=== PATIENT | female | born 1945 | race Caucasian/White ===

== ENCOUNTER 2016-06-16 14:40 | Outpatient (CLI) | payer MEDICARE | END 2016-06-16 14:41 | disposition home or self-care (01) | DX: E78.5 Hyperlipidemia, unspecified (principal) ==

== ENCOUNTER 2016-07-10 16:28 | Outpatient (CLI) | payer MEDICARE | END 2016-07-10 16:29 | disposition home or self-care (01) | DX: J18.9 Pneumonia, unspecified organism (principal) ==

== ENCOUNTER 2016-07-13 20:25 | Outpatient (CLI) | payer MEDICARE | END 2016-07-13 20:26 | disposition home or self-care (01) | DX: J18.9 Pneumonia, unspecified organism (principal); R06.02 Shortness of breath ==

== ENCOUNTER 2016-07-24 12:32 | Outpatient (CLI) | payer MEDICARE ==
[2016-07-24 19:11] LABS: BASOPHILS % (AUTO) 0.3 %; EOSINOPHILS % (AUTO) 0.1 %; HCT - HEMATOCRIT 33.3 % (37.0-47.0); LYMPHOCYTES # (AUTO) 1.4 10^3/uL (1.5-3.5); LYMPHOCYTES % (AUTO) 9.4 %; MEAN CORPUSCULAR HEMOGLOBIN 29.9 pg (27.0-31.0); MEAN CORPUSCULAR HGB CONC 33.2 g/dL (32.0-36.0); MEAN CORPUSCULAR VOLUME 90.1 fL (81.0-99.0); MEAN PLATELET VOLUME 7.2 fL (7.9-10.8); MONOCYTES # (AUTO) 0.5 10^3/uL (0.0-1.0); MONOCYTES % (AUTO) 3.5 %; NEUTROPHILS # (AUTO) 12.8 10^3/uL (1.5-6.6); NEUTROPHILS % (AUTO) 86.7 %; RED BLOOD COUNT 3.69 10^6/uL (4.20-5.40); RED CELL DISTRIBUTION WIDTH 14.4 % (12.0-15.0); UNCORRECTED WHITE BLOOD COUNT 14.7 x10^3/uL; WHITE BLOOD COUNT 14.7 x10^3/uL (4.8-10.8)
[2016-07-24 19:44] LABS: CALCIUM 9.5 mg/dL (8.5-10.3); CREATININE 0.8 mg/dL (0.4-1.0); POTASSIUM 4.2 mmol/L (3.5-5.0)
[2016-07-24 20:19] LABS: PLATELET ESTIMATE, MANUAL INCREASED (>450,000) (NORMAL); PLATELET MORPHOLOGY NORMAL APPEARANCE (NORMAL)
[2016-07-24 20:20] LABS: WBC MORPHOLOGY (MULTIPLE) NORMAL APPEARANCE (NORMAL)
== END 2016-07-24 12:33 | disposition home or self-care (01) ==
LOC: LAB.WCP 12:32
PROVIDERS: ATTEND Family Medicine
DX: R55 Syncope and collapse (principal)
CPT/HCPCS: 36415; 80048; 83880; 84484; 85025

== ENCOUNTER 2016-08-03 12:50 | Outpatient (CLI) | payer MEDICARE, OTHER | END 2016-08-03 12:51 | disposition home or self-care (01) | DX: M85.88 Other specified disorders of bone density and structure, other site (principal) ==

== ENCOUNTER 2016-08-03 12:54 | Outpatient (CLI) | payer OTHER | END 2016-08-03 12:55 | disposition home or self-care (01) | DX: R06.02 Shortness of breath (principal); R55 Syncope and collapse; Z86.79 Personal history of other diseases of the circulatory system; I51.7 Cardiomegaly ==

== ENCOUNTER 2016-09-04 13:46 | Outpatient (CLI) | payer OTHER ==
[2016-09-04] MEDS ORDERED: IOPAMIDOL-300 100 ML VIAL IVP ONE (14:55)
== END 2016-09-04 13:47 | disposition home or self-care (01) ==
DX: J18.9 Pneumonia, unspecified organism (principal); J90 Pleural effusion, not elsewhere classified; Z85.3 Personal history of malignant neoplasm of breast; C50.911 Malignant neoplasm of unspecified site of right female breast; Z90.11 Acquired absence of right breast and nipple; Z17.1 Estrogen receptor negative status [ER-]; R63.5 Abnormal weight gain; G62.9 Polyneuropathy, unspecified; R53.83 Other fatigue; G47.30 Sleep apnea, unspecified; J85.2 Abscess of lung without pneumonia
CPT/HCPCS: 36415; 71260; 80053; 83615; 85027; 99211; 99214; Q9967

== ENCOUNTER 2016-09-06 13:24 | Day surgery (SDC) | payer OTHER ==
--- NOTE | 2016-09-06 16:16 | XRAY Report ---
FRONTAL CHEST: 09/06/2016 CLINICAL INDICATION: PICC placement. FINDINGS: Frontal view of the chest is compared to previous CT of 09/04/2016. The cardiac silhouette is enlarged. Postoperative changes are stable. Left arm PICC terminates in t he distal superior vena cava, approximately 2 cm above the cavoatrial junction. Right basilar parenc hymal disease appears unchanged from CT, with trace right effusion. No pneumothorax. IMPRESSION: LEFT ARM PICC TERMINATING IN THE DISTAL SUPERIOR VENA CAVA. JOB #: [id number] EXT JOB #:[id number]
== END 2016-09-06 13:25 | disposition home or self-care (01) ==
LOC: SDS 13:24
PROVIDERS: ATTEND Registered Nurse
PROC: 02HV33Z Insertion of Infusion Device into Superior Vena Cava, Percutaneous Approach (ICD-10-PCS; principal; 2016-09-06 13:30)
DX: J85.2 Abscess of lung without pneumonia (principal)
CPT/HCPCS: 36569; C1751; 71010

== ENCOUNTER 2016-09-27 15:39 | Outpatient (CLI) | payer OTHER ==
[2016-09-27] MEDS ORDERED: IOPAMIDOL-300 100 ML VIAL IVP ONE (16:21)
== END 2016-09-27 15:40 | disposition home or self-care (01) ==
DX: J90 Pleural effusion, not elsewhere classified (principal)
CPT/HCPCS: 71260; Q9967

== ENCOUNTER 2017-05-09 10:40 | Outpatient (CLI) | payer MEDICARE | END 2017-05-09 10:41 | disposition home or self-care (01) | LOC: SC 10:40 | PROVIDERS: ATTEND Nurse Practitioner Family | DX: G47.33 Obstructive sleep apnea (adult) (pediatric) (principal); G47.00 Insomnia, unspecified | CPT/HCPCS: 99215; G0463; 99212 ==

== ENCOUNTER 2017-07-05 13:09 | Outpatient (CLI) | payer MEDICARE | END 2017-07-05 13:10 | disposition home or self-care (01) | LOC: SC 13:09 | PROVIDERS: ATTEND Nurse Practitioner Family | DX: G47.33 Obstructive sleep apnea (adult) (pediatric) (principal) | CPT/HCPCS: 99215; G0463; 99212 ==

== ENCOUNTER 2017-08-02 11:34 | Outpatient (CLI) | payer MEDICARE ==
--- NOTE | 2017-08-03 13:15 | Mammography Report ---
DIGITAL SCREENING LEFT MAMMOGRAM: 08/02/2017 CLINICAL INDICATION: A 71-year-old with personal history of right breast cancer, status post mastectomy and chemotherapy. TECHNIQUE: Left CC and MLO views were obtained. COMPARISON: 08/2015, 08/2014, 06/2013, 05/2013, 04/2012, 12/2010, 12/2009. FINDINGS: The left breast again demonstrates heterogeneously dense fibroglandular parenchyma. Coarse and punctate, typically benign calcifications are present, no suspicious masses, clustered microcalcifications, or regions of architectural distortion are identified. IMPRESSION: BENIGN FINDINGS. RECOMMENDATION: ROUTINE ANNUAL SCREENING UNLESS OTHERWISE CLINICALLY INDICATED. BIRADS CATEGORY 2-BENIGN FINDINGS. STANDARD QUALIFYING STATEMENTS: 1. This examination was reviewed with the aid of Computer-Aided Detection (CAD). 2. A negative or benign imaging report should not delay biopsy if clinically suspicious findings are present. Consider surgical consultation if warranted. More than 5% of cancers are not identified by imaging. 3. Dense breasts may obscure an underlying neoplasm. TD: 08/03/2017 13:14
== END 2017-08-02 11:35 | disposition home or self-care (01) ==
LOC: DI.S 11:34
PROVIDERS: ATTEND Internal Medicine Hematology & Oncology
DX: Z12.31 Encounter for screening mammogram for malignant neoplasm of breast (principal); Z85.3 Personal history of malignant neoplasm of breast; Z90.11 Acquired absence of right breast and nipple

== ENCOUNTER 2017-08-06 11:21 | Outpatient (CLI) | payer MEDICARE | END 2017-08-06 11:22 | disposition home or self-care (01) | LOC: SC 11:21 | PROVIDERS: ATTEND Nurse Practitioner Family | DX: G47.33 Obstructive sleep apnea (adult) (pediatric) (principal) | CPT/HCPCS: 99214; G0463; 99212 ==

== ENCOUNTER 2017-08-08 11:06 | Outpatient (CLI) | payer MEDICARE ==
[2017-08-08 17:48] LABS: BASOPHILS # (AUTO) 0.1 10^3/uL (0.0-0.1); BASOPHILS % (AUTO) 1.2 %; EOSINOPHILS # (AUTO) 0.2 10^3/uL (0.0-0.7); EOSINOPHILS % (AUTO) 4.1 %; HGB - HEMOGLOBIN 12.1 g/dL (12.0-16.0); LYMPHOCYTES # (AUTO) 1.4 10^3/uL (1.5-3.5); LYMPHOCYTES % (AUTO) 33.5 %; MEAN CORPUSCULAR HGB CONC 32.8 g/dL (32.0-36.0); MEAN CORPUSCULAR VOLUME 94.6 fL (81.0-99.0); MEAN PLATELET VOLUME 7.9 fL (7.9-10.8); MONOCYTES # (AUTO) 0.3 10^3/uL (0.0-1.0); MONOCYTES % (AUTO) 7.9 %; NEUTROPHILS # (AUTO) 2.3 10^3/uL (1.5-6.6); NEUTROPHILS % (AUTO) 53.3 %; PLT - PLATELET COUNT 216 10^3/uL (130-450); RED BLOOD COUNT 3.91 10^6/uL (4.20-5.40); RED CELL DISTRIBUTION WIDTH 13.4 % (12.0-15.0); WHITE BLOOD COUNT 4.2 x10^3/uL (4.8-10.8)
[2017-08-08 18:15] LABS: ALBUMIN 3.9 g/dL (3.2-5.5); ALBUMIN/GLOBULIN RATIO 1.3 (1.0-2.2); ALKALINE PHOSPHATASE 43 IU/L (42-121); ALT ALANINE AMINOTRANSFERASE 14 IU/L (10-60); AST ASPARTATE AMINOTRANSFERASE 22 IU/L (10-42); BUN - BLOOD UREA NITROGEN 12 mg/dL (6-20); CARBON DIOXIDE - CO2 28 mmol/L (21-32); CHLORIDE 96 mmol/L (101-111); CHOL/HDL RATIO 3.9 (<4.4); CHOLESTEROL 257 mg/dL; CREATININE 0.7 mg/dL (0.4-1.0); GFR - MDRD 82 (>89); GLUCOSE 99 mg/dL (70-100); HDL CHOLESTEROL 66 mg/dL; LDL CHOLESTEROL,CALCULATED 166 mg/dL; LDL/HDL RATIO 2.5 (<4.4); SODIUM 134 mmol/L (135-145); VLDL CHOLESTEROL 25 mg/dL
== END 2017-08-08 11:07 | disposition home or self-care (01) ==
LOC: LAB.F 11:06
PROVIDERS: ATTEND Family Medicine
DX: I10 Essential (primary) hypertension (principal)
CPT/HCPCS: 36415; 80053; 80061; 83721; 85025

== ENCOUNTER 2017-10-08 13:39 | Outpatient (CLI) | payer MEDICARE | END 2017-10-08 13:40 | disposition home or self-care (01) | LOC: SC 13:39 | PROVIDERS: ATTEND Nurse Practitioner Family | DX: G47.33 Obstructive sleep apnea (adult) (pediatric) (principal) | CPT/HCPCS: 99214; G0463; 99212 ==

== ENCOUNTER 2018-01-18 12:33 | Outpatient (CLI) | payer MEDICARE | END 2018-01-18 12:34 | disposition home or self-care (01) | LOC: LAB.F 12:33 | PROVIDERS: ATTEND Family Medicine | DX: E78.5 Hyperlipidemia, unspecified (principal); I10 Essential (primary) hypertension; Z79.899 Other long term (current) drug therapy; R73.01 Impaired fasting glucose ==

== ENCOUNTER 2018-01-21 11:12 | Outpatient (CLI) | payer MEDICARE ==
[2018-01-21 18:04] LABS: BASOPHILS % (AUTO) 1.1 %; EOSINOPHILS # (AUTO) 0.1 10^3/uL (0.0-0.7); HGB - HEMOGLOBIN 13.4 g/dL (12.0-16.0); LYMPHOCYTES # (AUTO) 1.4 10^3/uL (1.5-3.5); LYMPHOCYTES % (AUTO) 31.7 %; MEAN CORPUSCULAR HEMOGLOBIN 33.1 pg (27.0-31.0); MEAN CORPUSCULAR HGB CONC 34.6 g/dL (32.0-36.0); MEAN CORPUSCULAR VOLUME 95.6 fL (81.0-99.0); MEAN PLATELET VOLUME 7.8 fL (7.9-10.8); MONOCYTES # (AUTO) 0.3 10^3/uL (0.0-1.0); MONOCYTES % (AUTO) 6.9 %; NEUTROPHILS # (AUTO) 2.6 10^3/uL (1.5-6.6); NEUTROPHILS % (AUTO) 57.3 %; PLT - PLATELET COUNT 220 10^3/uL (130-450); RED BLOOD COUNT 4.06 10^6/uL (4.20-5.40); RED CELL DISTRIBUTION WIDTH 13.6 % (12.0-15.0); WHITE BLOOD COUNT 4.5 x10^3/uL (4.8-10.8)
[2018-01-21 18:46] LABS: ALKALINE PHOSPHATASE 43 IU/L (42-121); ALT ALANINE AMINOTRANSFERASE 19 IU/L (10-60); AST ASPARTATE AMINOTRANSFERASE 23 IU/L (10-42); BILIRUBIN,TOTAL 0.8 mg/dL (0.2-1.0); BUN - BLOOD UREA NITROGEN 11 mg/dL (6-20); CALCIUM 9.3 mg/dL (8.5-10.3); CARBON DIOXIDE - CO2 31 mmol/L (21-32); CHLORIDE 98 mmol/L (101-111); CREATININE 0.6 mg/dL (0.4-1.0); GFR - MDRD 98 (>89); GLUCOSE 98 mg/dL (70-100); SODIUM 136 mmol/L (135-145)
[2018-01-21 18:47] LABS: ALBUMIN/GLOBULIN RATIO 1.3 (1.0-2.2); CHOL/HDL RATIO 3.9 (<4.4); CHOLESTEROL 283 mg/dL; HDL CHOLESTEROL 73 mg/dL; LDL CHOLESTEROL,CALCULATED 186 mg/dL; LDL/HDL RATIO 2.5 (<4.4); VLDL CHOLESTEROL 24 mg/dL
[2018-01-21 20:35] LABS: HEMOGLOBIN A1C 0.54 g/dL; HEMOGLOBIN A1C % 5.7 % (4.6-6.2)
== END 2018-01-21 11:13 | disposition home or self-care (01) ==
LOC: LAB.F 11:12
PROVIDERS: ATTEND Family Medicine
DX: E78.5 Hyperlipidemia, unspecified (principal); I10 Essential (primary) hypertension; Z79.899 Other long term (current) drug therapy; R73.01 Impaired fasting glucose
CPT/HCPCS: 36415; 80053; 80061; 83036; 83721; 84443; 85025

== ENCOUNTER 2018-03-07 14:30 | Outpatient (CLI) | payer MEDICARE | END 2018-03-07 14:31 | disposition home or self-care (01) | LOC: CAM 14:30 | PROVIDERS: ATTEND Internal Medicine Hematology & Oncology | DX: G62.0 Drug-induced polyneuropathy (principal) | CPT/HCPCS: 97810; 97811 ==

== ENCOUNTER 2018-03-21 14:15 | Outpatient (CLI) | payer MEDICARE | END 2018-03-21 14:16 | disposition home or self-care (01) | LOC: CAM 14:15 | PROVIDERS: ATTEND Internal Medicine Hematology & Oncology | DX: G62.9 Polyneuropathy, unspecified (principal) | CPT/HCPCS: 97810; 97811 ==

== ENCOUNTER 2018-04-04 14:09 | Outpatient (CLI) | payer MEDICARE | END 2018-04-04 14:10 | disposition home or self-care (01) | LOC: CAM 14:09 | PROVIDERS: ATTEND Family Medicine | DX: G62.9 Polyneuropathy, unspecified (principal) | CPT/HCPCS: 97813; 97814 ==

== ENCOUNTER 2018-04-18 14:02 | Outpatient (CLI) | payer MEDICARE | END 2018-04-18 14:03 | disposition home or self-care (01) | LOC: CAM 14:02 | PROVIDERS: ATTEND Internal Medicine Hematology & Oncology | DX: G62.9 Polyneuropathy, unspecified (principal) | CPT/HCPCS: 97813; 97814 ==

== ENCOUNTER 2018-04-25 14:07 | Outpatient (CLI) | payer MEDICARE | END 2018-04-25 14:08 | disposition home or self-care (01) | LOC: CAM 14:07 | PROVIDERS: ATTEND Internal Medicine Hematology & Oncology | DX: G62.9 Polyneuropathy, unspecified (principal) | CPT/HCPCS: 97813; 97814 ==

== ENCOUNTER 2018-05-09 13:11 | Outpatient (CLI) | payer MEDICARE | END 2018-05-09 13:12 | disposition home or self-care (01) | LOC: CAM 13:11 | PROVIDERS: ATTEND Internal Medicine Hematology & Oncology | DX: G62.9 Polyneuropathy, unspecified (principal) | CPT/HCPCS: 97813; 97814 ==

== ENCOUNTER 2018-05-23 13:06 | Outpatient (CLI) | payer MEDICARE | END 2018-05-23 13:07 | disposition home or self-care (01) | LOC: CAM 13:06 | PROVIDERS: ATTEND Internal Medicine Hematology & Oncology | DX: G62.9 Polyneuropathy, unspecified (principal) | CPT/HCPCS: 97810; 97811 ==

== ENCOUNTER 2018-06-20 13:09 | Outpatient (CLI) | payer MEDICARE | END 2018-06-20 13:10 | disposition home or self-care (01) | LOC: CAM 13:09 | PROVIDERS: ATTEND Internal Medicine Hematology & Oncology | DX: G62.2 Polyneuropathy due to other toxic agents (principal); T45.1X5A Adverse effect of antineoplastic and immunosuppressive drugs, initial encounter | CPT/HCPCS: 97810; 97811 ==

== ENCOUNTER 2018-08-01 14:05 | Outpatient (CLI) | payer MEDICARE | END 2018-08-01 14:06 | disposition home or self-care (01) | LOC: CAM 14:05 | PROVIDERS: ATTEND Family Medicine | DX: G61.9 Inflammatory polyneuropathy, unspecified (principal) | CPT/HCPCS: 97810; 97811 ==

== ENCOUNTER 2018-08-15 11:19 | Outpatient (CLI) | payer MEDICARE ==
[2018-08-15 18:18] LABS: CHOL/HDL RATIO 3.9 (<4.4); CHOLESTEROL 256 mg/dL; HDL CHOLESTEROL 66 mg/dL; LDL CHOLESTEROL,CALCULATED 169 mg/dL; LDL/HDL RATIO 2.6 (<4.4); VLDL CHOLESTEROL 21 mg/dL
== END 2018-08-15 11:20 | disposition home or self-care (01) ==
LOC: LAB.F 11:19
PROVIDERS: ATTEND Family Medicine
DX: E78.5 Hyperlipidemia, unspecified (principal)
CPT/HCPCS: 36415; 80061; 83721

== ENCOUNTER 2018-08-19 14:27 | Outpatient (CLI) | payer MEDICARE ==
--- NOTE | 2018-08-20 09:55 | Mammography Report ---
Reason: SCREENING MAMMO,STAGE II RIGHT BREAST CA Procedure Date: 08/19/2018 Accession Number: [id number] / [id number] Procedure: MGN - Screening Mammo Dig LT CPT Code: FULL RESULT: EXAM: Screening Mammo Dig LT DATE: 08/19/2018 2:43 PM CLINICAL HISTORY: Personal history of treated right breast cancer status post mastectomy and chemotherapy. No reported family history of breast cancer. Routine screening left breast. TECHNIQUE: Unilateral left CC and MLO views were obtained. COMPARISON: 08/02/2017 through 06/06/2013 FINDINGS: The breast demonstrates heterogeneously dense fibroglandular parenchyma. Left breast: There are no suspicious masses, calcifications or areas of distortion. IMPRESSION: Negative examination RECOMMENDATION: Routine annual screening unless otherwise clinically indicated. BI-RADS CATEGORY 1: Negative STANDARD QUALIFYING STATEMENTS: 1. This examination was reviewed with the aid of Computer-Aided Detection (CAD). 2. A negative or benign imaging report should not preclude biopsy if clinically suspicious findings are present. 3. Dense breasts may obscure an underlying neoplasm. 4. This examination was reviewed without the aid of 3D breast imaging (tomosynthesis).
== END 2018-08-19 14:28 | disposition home or self-care (01) ==
LOC: DI.N 14:27
PROVIDERS: ATTEND Internal Medicine Hematology & Oncology
DX: Z12.31 Encounter for screening mammogram for malignant neoplasm of breast (principal); Z85.3 Personal history of malignant neoplasm of breast; Z90.11 Acquired absence of right breast and nipple

== ENCOUNTER 2018-09-16 14:24 | Outpatient (CLI) | payer MEDICARE ==
--- NOTE | 2018-09-17 11:11 | Ultrasound Report ---
Reason: CLAUDICATION BILATERAL Procedure Date: 09/16/2018 Accession Number: [id number] / [id number] Procedure: US - Duplex Lwr Ext Arterial Bilat CPT Code: FULL RESULT: EXAM: Bilateral Lower Extremity Arterial Doppler Ultrasound EXAM DATE: 09/16/2018 03:05 PM. CLINICAL HISTORY: Claudication bilateral. COMPARISON: None. TECHNIQUE: Real-time sonographic vascular imaging was performed by the coding coordinator, utilizing color-flow, Doppler flow, and spectral analysis. Multiple inside sales representative static images were saved for review. FINDINGS: The bilateral lower extremity arterial systems are sampled with grayscale, color and spectral Doppler. Grayscale demonstrates normal-appearing vasculature and color Doppler demonstrates patency of all sampled bilateral lower extremity arteries as listed below. Spectral Doppler demonstrates preserved brisk systolic upstrokes and expected normal arterial waveforms throughout both lower extremities. Right Lower Extremity: ABLE BODIED WATCHMAN: PSV 86.8 cm/sec. PSFA: PSV 81.2 cm/sec. MSFA: PSV 67.8 cm/sec. DSFA: PSV 72.8 cm/sec. PFA: PSV 77.3 cm/sec. POP: PSV 66.1 cm/sec. NICOLAS: PSV 52.7 cm/sec. SUPERMARKET MANAGER: PSV 81.2 cm/sec. CHAR: PSV 71.1 cm/sec. DPA: PSV 59.7 cm/sec. Left Lower Extremity: ABLE BODIED WATCHMAN: PSV 108.5 cm/sec. PSFA: PSV 75.2 cm/sec. MSFA: PSV 78.4 cm/sec. DSFA: PSV 75.6 cm/sec. PFA: PSV 47.6 cm/sec. POP: PSV 74.7 cm/sec. NICOLAS: PSV 66.8 cm/sec. SUPERMARKET MANAGER: PSV 77.5 cm/sec. CHAR: PSV 48.1 cm/sec. DPA: PSV 67.6 cm/sec. IMPRESSION: Normal arterial study. If physical examination and presentation is typical of vascular disease, consider duplex interrogation of the venous system for insufficiency. RADIA
== END 2018-09-16 14:25 | disposition home or self-care (01) ==
LOC: DI 14:24
PROVIDERS: ATTEND Family Medicine
DX: I73.9 Peripheral vascular disease, unspecified (principal)
CPT/HCPCS: 93925

== ENCOUNTER 2018-09-25 12:36 | Outpatient (CLI) | payer MEDICARE ==
--- NOTE | 2018-09-26 09:48 | XRAY Report ---
Reason: HIP PAIN,RIGHT Procedure Date: 09/25/2018 Accession Number: [id number] / [id number] Procedure: XR - Hip w/Pelvis 2-3V RT CPT Code: FULL RESULT: EXAM: RIGHT HIP RADIOGRAPHY EXAM DATE: 09/25/2018 01:02 PM. CLINICAL HISTORY: HIP Pain, right. COMPARISON: HIP 2 VIEW RT 02/06/2014 11:57 AM. TECHNIQUE: 2 views. FINDINGS: Bones: Slight interval progression in now moderate right hip joint osteoarthritis compared to 02/06/2014. No acute abnormality. No evidence of fracture. No obvious AVN. Soft Tissues: Normal. No soft tissue swelling or calcifications. IMPRESSION: 1. No acute abnormality. 2. Moderate right hip joint osteoarthritis. RADIA
== END 2018-09-25 12:37 | disposition home or self-care (01) ==
LOC: DI 12:36
PROVIDERS: ATTEND Family Medicine
DX: M16.11 Unilateral primary osteoarthritis, right hip (principal)

== ENCOUNTER 2018-10-17 10:50 | Outpatient (CLI) | payer MEDICARE ==
[2018-10-17 17:44] LABS: HB2 TOTAL 11.7 g/dL; HEMOGLOBIN A1C 0.42 g/dL; HEMOGLOBIN A1C % 5.4 % (4.6-6.2)
[2018-10-17 17:45] LABS: ALBUMIN 3.6 g/dL (3.2-5.5); ALBUMIN/GLOBULIN RATIO 1.1 (1.0-2.2); ALKALINE PHOSPHATASE 42 IU/L (42-121); ALT ALANINE AMINOTRANSFERASE 26 IU/L (10-60); AST ASPARTATE AMINOTRANSFERASE 28 IU/L (10-42); BILIRUBIN,TOTAL 0.6 mg/dL (0.2-1.0); BUN - BLOOD UREA NITROGEN 12 mg/dL (6-20); CALCIUM 9.3 mg/dL (8.5-10.3); CARBON DIOXIDE - CO2 31 mmol/L (21-32); CHLORIDE 95 mmol/L (101-111); CHOL/HDL RATIO 4.3 (<4.4); CHOLESTEROL 250 mg/dL; CREATININE 0.7 mg/dL (0.4-1.0); GFR - MDRD 82 (>89); GLUCOSE 106 mg/dL (70-100); HDL CHOLESTEROL 58 mg/dL; LDL CHOLESTEROL,CALCULATED 163 mg/dL; LDL/HDL RATIO 2.8 (<4.4); SODIUM 137 mmol/L (135-145); VLDL CHOLESTEROL 29 mg/dL
[2018-10-17 17:56] LABS: THYROID STIMULATING HORMONE 1.65 uIU/mL (0.34-5.60)
[2018-10-17 19:03] LABS: BASOPHILS # (AUTO) 0.1 10^3/uL (0.0-0.1); BASOPHILS % (AUTO) 1.3 %; EOSINOPHILS # (AUTO) 0.2 10^3/uL (0.0-0.7); EOSINOPHILS % (AUTO) 5.3 %; HGB - HEMOGLOBIN 11.3 g/dL (12.0-16.0); LYMPHOCYTES # (AUTO) 1.3 10^3/uL (1.5-3.5); LYMPHOCYTES % (AUTO) 31.3 %; MEAN CORPUSCULAR HEMOGLOBIN 31.7 pg (27.0-31.0); MEAN CORPUSCULAR HGB CONC 33.4 g/dL (32.0-36.0); MEAN PLATELET VOLUME 8.3 fL (7.9-10.8); MONOCYTES # (AUTO) 0.3 10^3/uL (0.0-1.0); MONOCYTES % (AUTO) 7.9 %; NEUTROPHILS # (AUTO) 2.3 10^3/uL (1.5-6.6); NEUTROPHILS % (AUTO) 54.2 %; PLT - PLATELET COUNT 219 10^3/uL (130-450); RED BLOOD COUNT 3.57 10^6/uL (4.20-5.40); WHITE BLOOD COUNT 4.3 x10^3/uL (4.8-10.8)
== END 2018-10-17 10:51 | disposition home or self-care (01) ==
LOC: LAB.F 10:50
PROVIDERS: ATTEND Family Medicine
DX: I10 Essential (primary) hypertension (principal); E78.5 Hyperlipidemia, unspecified; R73.01 Impaired fasting glucose
CPT/HCPCS: 36415; 80053; 80061; 83036; 83721; 84439; 84443; 85025

== ENCOUNTER 2018-12-03 13:53 | Outpatient (CLI) | payer MEDICARE | END 2018-12-03 13:54 | disposition home or self-care (01) | LOC: LAB.F 13:53 | PROVIDERS: ATTEND Family Medicine | DX: Z01.84 Encounter for antibody response examination (principal) | CPT/HCPCS: 36415; 86762; 86765 ==

== ENCOUNTER 2019-01-23 11:24 | Outpatient (CLI) | payer MEDICARE ==
[2019-01-23 19:18] LABS: MEAN CORPUSCULAR HGB CONC 32.8 g/dL (32.0-36.0); MEAN CORPUSCULAR VOLUME 97.4 fL (81.0-99.0); RED BLOOD COUNT 3.44 10^6/uL (4.20-5.40); RED CELL DISTRIBUTION WIDTH 13.7 % (12.0-15.0); WHITE BLOOD COUNT 4.6 x10^3/uL (4.8-10.8)
[2019-01-23 19:40] LABS: BUN - BLOOD UREA NITROGEN 16 mg/dL (6-20); CALCIUM 9.7 mg/dL (8.5-10.3); CARBON DIOXIDE - CO2 28 mmol/L (21-32); CHLORIDE 96 mmol/L (101-111); CHOL/HDL RATIO 3.5 (<4.4); CHOLESTEROL 235 mg/dL; CREATININE 0.8 mg/dL (0.4-1.0); GFR - MDRD 70 (>89); GLUCOSE 98 mg/dL (70-100); HDL CHOLESTEROL 68 mg/dL; LDL CHOLESTEROL,CALCULATED 143 mg/dL; LDL/HDL RATIO 2.1 (<4.4); SODIUM 135 mmol/L (135-145); VLDL CHOLESTEROL 24 mg/dL
[2019-01-23 19:53] LABS: FERRITIN 49.4 ng/mL (11.0-306.8)
== END 2019-01-23 11:25 | disposition home or self-care (01) ==
LOC: LAB.WCP 11:24
PROVIDERS: ATTEND Family Medicine
DX: E78.5 Hyperlipidemia, unspecified (principal); R06.02 Shortness of breath; D64.9 Anemia, unspecified
CPT/HCPCS: 36415; 80048; 80061; 82607; 82728; 83721; 83880; 85027

== ENCOUNTER 2019-01-23 11:41 | Outpatient (CLI) | payer MEDICARE ==
--- NOTE | 2019-01-23 20:23 | XRAY Report ---
Reason: SHORTNESS OF BREATH Procedure Date: 01/23/2019 Accession Number: [id number] / [id number] Procedure: WCP - Chest 2 View X-Ray CPT Code: 67418 FULL RESULT: EXAM: CHEST RADIOGRAPHY EXAM DATE: 01/23/2019 11:41 AM. CLINICAL HISTORY: SHORTNESS OF BREATH. COMPARISON: CHEST FOR LINE PLACEMENT 09/06/2016 3:05 PM. TECHNIQUE: 2 views. FINDINGS: Lungs/Pleura: Resolution of the prior mild right mid and lower lung opacities. Left lateral mid to lower lung scar or atelectasis is stable. Increased very mild left basilar atelectasis or infiltrate. No dense consolidation. No lea pleural effusion. No pneumothorax. Mediastinum: Stable cardiomegaly. Median sternotomy changes redemonstrated. Other: Left PICC catheter no longer demonstrated. Right axillary region surgical clips redemonstrated. IMPRESSION: 1. Resolution of previous mild right pulmonary opacities. 2. Increased very mild left basilar atelectasis or infiltrate. 3. Stable cardiac enlargement. RADIA
== END 2019-01-23 23:59 | disposition home or self-care (01) ==
LOC: DI.WCP 11:41 → EDSTATUS 13:11 → DI.WCP 23:59
PROVIDERS: ATTEND Family Medicine
DX: R91.8 Other nonspecific abnormal finding of lung field (principal); I51.7 Cardiomegaly
CPT/HCPCS: 71046

== ENCOUNTER 2019-01-29 10:46 | Outpatient (CLI) | payer MEDICARE ==
[2019-01-29] MEDS ORDERED: REGADENOSON 0.4 MG/5 ML SYRINGE IVP ONE ×2 (11:21→14:22)
--- NOTE | 2019-01-29 17:37 | CARDIAC PROCEDURE NOTE ---
DATE OF SERVICE: 01/29/2019 Physician: Juana Candelaria MD, [facility] INDICATION: Shortness of breath. CARDIAC RISK FACTORS: Postmenopausal status, hypertension, elevated cholesterol, family history of heart disease (in a half brother). Patient has known congenital heart disease with a prolapsed mitral valve and "septal defect" (unknown what type of defect). DESCRIPTION OF PROCEDURE: After signing informed consent, patient underwent a Lexiscan pharmaceutical stress test with nuclear myocardial perfusion imaging. RESTING HEART RATE: 62. PEAK HEART RATE: 99. RESTING BLOOD PRESSURE: 164/99 (patient was told to stop her blood pressure medications for 24 hours prior, which she did). PEAK BLOOD PRESSURE: 172/81. Patient underwent Lexiscan infusion per protocol. She developed brief chest "tightness", which she rated 3 - 4/10 and mild shortness of breath. The symptoms subsided after 3 minutes, spontaneously. Oxygen saturation was 99% on room air during these symptoms. RESTING EKG: Ectopic atrial rhythm with abnormal P-wave morphology, low voltage in the limb leads, diffuse T-wave flattening in the limb leads, inverted T waves in V3 through V6. EKG AT PEAK: No new ST segment or T-wave changes. SUMMARY 1. Abnormal resting EKG. 2. No new changes by EKG criteria to suggest ischemia. 3. Nuclear images reported separately. cc: Naila Bahena DO TD: 01/29/2019 17:19 MTDD
--- NOTE | 2019-01-29 17:43 | Nuclear Medicine Report ---
Reason: SHORTNESS OF BREATH Procedure Date: 01/29/2019 Accession Number: [id number] / [id number] Procedure: NM - Myocardial Perfusion STR/RST CPT Code: FULL RESULT: EXAM: SINGLE-ISOTOPE PHARMACOLOGICAL STRESS TEST WITH REGADENOSON. SINGLE-ISOTOPE AND TWO-DAY REST/STRESS MYOCARDIAL PERFUSION SCANS WITH TOMOGRAPHIC IMAGING, QUANTITATIVE ANALYSIS, WALL MOTION ANALYSIS AND CALCULATION OF EJECTION FRACTION. EXAM DATE: 01/29/2019 03:29 PM. CLINICAL HISTORY: SHORTNESS OF BREATH. COMPARISON: CHEST 2 VIEW 01/23/2019 11:28 AM. TECHNIQUE: A pharmacological stress was performed with the infusion of 0.4 mg regadenoson per protocol. According to protocol, 10.9 mCi of Tc-99m sestamibi was injected for stress myocardial perfusion scan. Motion correction was applied when appropriate. The following day after the intravenous administration of 40.6 mCi of Tc-99m sestamibi, a rest myocardial perfusion scan was done with tomography. Motion correction was applied when appropriate. Gated tomographic images were obtained for wall motion analysis and computation of left ventricular ejection fraction. FINDINGS: Perfusion images: Left ventricular chamber size appears normal at rest and unchanged at stress. Moderate size mild to moderate severity fixed apical half anterior/anteroseptal perfusion deficit; breast attenuation artifact may contribute to this appearance. No convincing reversible perfusion deficits. SSS 9, SRS 5, SDS 4. Gated images: No convincing focal wall motion abnormality. Calculated left ventricular EDV 93 mL, ESV 39 mL. The left ventricular ejection fraction is estimated at 58% (normal > 50%). IMPRESSION: 1. No convincing reversible perfusion deficits to indicate stress-induced ischemia. 2. Moderate size mild to moderate severity fixed apical half anterior/anteroseptal perfusion deficit; breast attenuation artifact may contribute to this appearance. 3. Left ventricular ejection fraction of 58% (normal > 50%). Please correlate findings with stress ECG tracings and procedure notes. RADIA
== END 2019-01-29 10:47 | disposition home or self-care (01) ==
LOC: DI 10:46
PROVIDERS: ATTEND Family Medicine
DX: R06.02 Shortness of breath (principal); I10 Essential (primary) hypertension; E78.00 Pure hypercholesterolemia, unspecified; Z82.49 Family history of ischemic heart disease and other diseases of the circulatory system; R94.31 Abnormal electrocardiogram [ECG] [EKG]
CPT/HCPCS: 78452; 93017; A9500; J2785

== ENCOUNTER 2019-02-06 10:28 | Outpatient (CLI) | payer MEDICARE | END 2019-02-06 10:29 | disposition home or self-care (01) | LOC: DI 10:28 | PROVIDERS: ATTEND Family Medicine | DX: R06.02 Shortness of breath (principal); I27.20 Pulmonary hypertension, unspecified; I11.9 Hypertensive heart disease without heart failure; I34.0 Nonrheumatic mitral (valve) insufficiency | CPT/HCPCS: 93306 ==

== ENCOUNTER 2019-02-17 14:18 | Outpatient (CLI) | payer MEDICARE ==
--- NOTE | 2019-02-18 14:17 | XRAY Report ---
Reason: SHORTNESS OF BREATH Procedure Date: 02/17/2019 Accession Number: [id number] / [id number] Procedure: XRS - Chest 2 View X-Ray CPT Code: 13266 FULL RESULT: EXAM: CHEST RADIOGRAPHY EXAM DATE: 02/17/2019 02:52 PM. CLINICAL HISTORY: SHORTNESS OF BREATH. COMPARISON: CHEST 2 VIEW 01/23/2019 11:28 AM. TECHNIQUE: 2 views. FINDINGS: Lungs/Pleura: No focal opacities evident. No pleural effusion. No pneumothorax. Normal volumes. Linear peripheral scarring in the left midlung zone is unchanged. Mediastinum: Heart and mediastinal contours are unremarkable. Other: Status post sternotomy. Surgical clips in the right axilla with probable mastectomy. IMPRESSION: Postsurgical changes, otherwise no acute disease. RADIA
== END 2019-02-17 14:19 | disposition home or self-care (01) ==
LOC: DI.S 14:18
PROVIDERS: ATTEND Family Medicine
DX: R06.02 Shortness of breath (principal)
CPT/HCPCS: 71046

== ENCOUNTER 2019-02-28 11:48 | Outpatient (CLI) | payer MEDICARE ==
[2019-02-28 17:46] LABS: CALCIUM 10.1 mg/dL (8.5-10.3); CREATININE 0.7 mg/dL (0.4-1.0)
== END 2019-02-28 11:49 | disposition home or self-care (01) ==
LOC: LAB.S 11:48
PROVIDERS: ATTEND Internal Medicine Cardiovascular Disease
DX: R06.02 Shortness of breath (principal)
CPT/HCPCS: 36415; 80048

== ENCOUNTER 2019-04-07 13:51 | Outpatient (CLI) | payer MEDICARE ==
[2019-04-07 20:11] LABS: CALCIUM 9.9 mg/dL (8.5-10.3); CREATININE 0.8 mg/dL (0.4-1.0)
== END 2019-04-07 13:52 | disposition home or self-care (01) ==
LOC: LAB.S 13:51
PROVIDERS: ATTEND Internal Medicine Cardiovascular Disease
DX: I10 Essential (primary) hypertension (principal)
CPT/HCPCS: 36415; 80048

== ENCOUNTER 2019-04-18 10:09 | Day surgery (SDC) | payer MEDICARE ==
[2019-04-18] MEDS ORDERED: fentaNYL 250 MCG/5 ML VIAL IVP ONE (10:10)
[2019-04-18] MEDS ORDERED: MIDAZOLAM 2 MG/2 ML VIAL IVP ONE (10:10)
[2019-04-18] MEDS ORDERED: LACTATED RINGERS 1,000 ML IV ONE (10:24)
[2019-04-18 15:23] VITALS: BP 154/55
== END 2019-04-18 10:10 | disposition home or self-care (01) ==
LOC: SDS 10:09
PROVIDERS: ATTEND Surgery
PROC: 0DJD8ZZ Inspection of Lower Intestinal Tract, Via Natural or Artificial Opening Endoscopic (ICD-10-PCS; principal; 2019-04-18 11:30)
DX: Z12.11 Encounter for screening for malignant neoplasm of colon (principal); Z86.010 Personal history of colon polyps; I11.0 Hypertensive heart disease with heart failure; I50.9 Heart failure, unspecified; E78.5 Hyperlipidemia, unspecified; D64.9 Anemia, unspecified; G47.30 Sleep apnea, unspecified; I34.0 Nonrheumatic mitral (valve) insufficiency; Z85.3 Personal history of malignant neoplasm of breast; Z87.19 Personal history of other diseases of the digestive system
CPT/HCPCS: G0105; J3010; J7120

== ENCOUNTER 2019-04-29 11:58 | Outpatient (CLI) | payer MEDICARE ==
[2019-04-29 18:03] LABS: BUN - BLOOD UREA NITROGEN 16 mg/dL (6-20); CALCIUM 9.4 mg/dL (8.5-10.3); CARBON DIOXIDE - CO2 31 mmol/L (21-32); CHLORIDE 95 mmol/L (101-111); CREATININE 0.7 mg/dL (0.4-1.0); GFR - MDRD 82 (>89); GLUCOSE 100 mg/dL (70-100); SODIUM 135 mmol/L (135-145)
[2019-04-29 18:16] LABS: CRP - C-REACTIVE PROTEIN < 1.0 mg/dL (0-1.0)
== END 2019-04-29 11:59 | disposition home or self-care (01) ==
LOC: LAB.S 11:58
PROVIDERS: ATTEND Internal Medicine Cardiovascular Disease
DX: I10 Essential (primary) hypertension (principal); R53.83 Other fatigue
CPT/HCPCS: 36415; 80048; 83930; 85651; 86140

== ENCOUNTER 2019-05-13 11:50 | Outpatient (CLI) | payer MEDICARE ==
[2019-05-13 17:38] LABS: CREATININE 0.7 mg/dL (0.4-1.0)
== END 2019-05-13 11:51 | disposition home or self-care (01) ==
LOC: LAB.S 11:50
PROVIDERS: ATTEND Internal Medicine Cardiovascular Disease
DX: I10 Essential (primary) hypertension (principal)
CPT/HCPCS: 36415; 80048

== ENCOUNTER 2019-09-04 11:35 | Outpatient (CLI) | payer MEDICARE ==
[2019-09-06 15:35] LABS: ALBUMIN 4.4 g/dL (3.8-4.8); ALPHA 1 GLOBULIN 0.3 g/dL (0.2-0.3); ALPHA 2 GLOBULIN 0.7 g/dL (0.5-0.9); BETA 1 GLOBULIN 0.5 g/dL (0.4-0.6); BETA 2 GLOBULIN 0.4 g/dL (0.2-0.5); GAMMA GLOBULIN 1.3 g/dL (0.8-1.7)
== END 2019-09-04 11:36 | disposition home or self-care (01) ==
LOC: LAB.S 11:35
PROVIDERS: ATTEND Family Medicine
DX: M54.9 Dorsalgia, unspecified (principal)
CPT/HCPCS: 36415; 81599; 84155; 84165

== ENCOUNTER 2019-09-05 11:36 | Outpatient (CLI) | payer MEDICARE | END 2019-09-05 11:37 | disposition home or self-care (01) | LOC: LAB.S 11:36 | PROVIDERS: ATTEND Family Medicine | DX: M54.9 Dorsalgia, unspecified (principal) | CPT/HCPCS: 81599; 82570; 84156; 84166; 86335 ==

== ENCOUNTER 2020-02-29 11:29 | Outpatient (CLI) | payer MEDICARE ==
--- NOTE | 2020-03-03 08:15 | Mammography Report ---
UNILATERAL LEFT DIGITAL SCREENING MAMMOGRAM 3D/2D: 02/29/2020 CLINICAL: Routine screening. Personal history of right breast cancer. Comparison is made to exams dated: 08/19/2018 mammogram, 08/02/2017 mammogram, 08/26/2015 mammogram, 08/13/2014 mammogram, 06/23/2013 mammogram, and [facility] The tissue of left breast is heterogeneously dense. This may lower the sensitivity of mammography. No significant masses, calcifications, or other findings are seen in the breast. There has been no significant interval change. IMPRESSION: NEGATIVE There is no mammographic evidence of malignancy. A 1 year screening mammogram is recommended. This exam was interpreted at Station ID: [id number]. NOTE: For mammograms, a report in lay terms will be sent to the patient. Approximately 15% of breast malignancies will not be visualized mammographically. In the management of a palpable breast mass, a negative mammogram must not discourage biopsy of a clinically suspicious lesion. Electronically Signed By: Ralph rapp/marjorie:03/01/2020 16:55:41 ACR BI-RADS Category 1: Negative 3341F PARENCHYMAL PATTERN: (D) - The breast(s) demonstrate(s) heterogeneously dense fibroglandular michelle zheng. BI-RADS CATEGORY: (1) - 1 RECOMMENDATION: (ANNUAL) - Recommend routine annual screening mammography. [id number] 1 year screening LATERALITY: (B)
== END 2020-02-29 11:30 | disposition home or self-care (01) ==
LOC: DI 11:29
DX: Z12.31 Encounter for screening mammogram for malignant neoplasm of breast (principal)
CPT/HCPCS: 77063

== ENCOUNTER 2020-03-01 14:37 | Outpatient (CLI) | payer MEDICARE ==
[2020-03-01 15:24] LABS: CALCIUM 9.8 mg/dL (8.5-10.3); CREATININE 0.9 mg/dL (0.4-1.0)
== END 2020-03-01 14:38 | disposition home or self-care (01) ==
LOC: LAB 14:37
PROVIDERS: ATTEND Nurse Practitioner
DX: I10 Essential (primary) hypertension (principal); R06.09 Other forms of dyspnea
CPT/HCPCS: 36415; 80048

== ENCOUNTER 2020-03-15 11:42 | Outpatient (CLI) | payer MEDICARE ==
[2020-03-15 18:10] LABS: BASOPHILS # (AUTO) 0.1 10^3/uL (0.0-0.1); BASOPHILS % (AUTO) 1.1 %; EOSINOPHILS # (AUTO) 0.2 10^3/uL (0.0-0.7); EOSINOPHILS % (AUTO) 4.6 %; HGB - HEMOGLOBIN 12.2 g/dL (12.0-16.0); LYMPHOCYTES # (AUTO) 1.5 10^3/uL (1.5-3.5); LYMPHOCYTES % (AUTO) 33.3 %; MEAN CORPUSCULAR HEMOGLOBIN 31.7 pg (27.0-31.0); MEAN CORPUSCULAR HGB CONC 32.4 g/dL (32.0-36.0); MEAN CORPUSCULAR VOLUME 97.7 fL (81.0-99.0); MEAN PLATELET VOLUME 10.2 fL (7.9-10.8); MONOCYTES # (AUTO) 0.4 10^3/uL (0.0-1.0); MONOCYTES % (AUTO) 7.9 %; NEUTROPHILS # (AUTO) 2.4 10^3/uL (1.5-6.6); NEUTROPHILS % (AUTO) 52.7 %; PLT - PLATELET COUNT 233 10^3/uL (130-450); RED BLOOD COUNT 3.85 10^6/uL (4.20-5.40); RED CELL DISTRIBUTION WIDTH 13.2 % (12.0-15.0); WHITE BLOOD COUNT 4.6 x10^3/uL (4.8-10.8)
[2020-03-15 18:47] LABS: % IRON SATURATION 33 % (20-50); ALBUMIN 4.2 g/dL (3.2-5.5); ALBUMIN/GLOBULIN RATIO 1.2 (1.0-2.2); ALKALINE PHOSPHATASE 50 IU/L (42-121); ALT ALANINE AMINOTRANSFERASE 21 IU/L (10-60); AST ASPARTATE AMINOTRANSFERASE 27 IU/L (10-42); BILIRUBIN,TOTAL 0.8 mg/dL (0.2-1.0); BUN - BLOOD UREA NITROGEN 16 mg/dL (6-20); CALCIUM 10.3 mg/dL (8.5-10.3); CARBON DIOXIDE - CO2 32 mmol/L (21-32); CHLORIDE 98 mmol/L (101-111); CHOL/HDL RATIO 3.5 (<4.4); CHOLESTEROL 234 mg/dL; CREATININE 0.8 mg/dL (0.4-1.0); GLUCOSE 106 mg/dL (70-100); HDL CHOLESTEROL 67 mg/dL; IRON 110 ug/dL (28-170); LDL CHOLESTEROL,CALCULATED 137 mg/dL; SODIUM 137 mmol/L (135-145); TOTAL IRON BINDING CAPACITY 336 ug/dL (250-450); TOTAL PROTEIN 7.6 g/dL (6.7-8.2); TRANSFERRIN 240 mg/dL (192-382); VLDL CHOLESTEROL 30 mg/dL
[2020-03-15 19:02] LABS: FERRITIN 71.8 ng/mL (11.0-306.8)
[2020-03-15 21:58] LABS: HEMOGLOBIN A1c% 5.5 % (4.27-6.07)
== END 2020-03-15 11:43 | disposition home or self-care (01) ==
LOC: LAB.WCP 11:42
PROVIDERS: ATTEND Family Medicine
DX: I10 Essential (primary) hypertension (principal); R73.01 Impaired fasting glucose; D64.9 Anemia, unspecified
CPT/HCPCS: 36415; 80053; 80061; 82607; 82728; 83036; 83540; 83721; 84443; 84466; 85025

== ENCOUNTER 2020-06-25 10:49 | Outpatient (CLI) | payer MEDICARE ==
[2020-06-25 11:48] LABS: ALBUMIN/GLOBULIN RATIO 1.1 (1.0-2.2); ALKALINE PHOSPHATASE 52 IU/L (42-121); ALT ALANINE AMINOTRANSFERASE 25 IU/L (10-60); AST ASPARTATE AMINOTRANSFERASE 26 IU/L (10-42); BILIRUBIN,TOTAL 0.9 mg/dL (0.2-1.0); BUN - BLOOD UREA NITROGEN 18 mg/dL (6-20); CARBON DIOXIDE - CO2 28 mmol/L (21-32); CHLORIDE 99 mmol/L (101-111); CHOL/HDL RATIO 3.7 (<4.4); CHOLESTEROL 241 mg/dL; CREATININE 0.7 mg/dL (0.4-1.0); GLUCOSE 114 mg/dL (70-100); HDL CHOLESTEROL 66 mg/dL; LDL CHOLESTEROL,CALCULATED 150 mg/dL; LDL/HDL RATIO 2.3 (<4.4); SODIUM 140 mmol/L (135-145); TOTAL PROTEIN 7.7 g/dL (6.7-8.2); VLDL CHOLESTEROL 25 mg/dL
== END 2020-06-25 10:50 | disposition home or self-care (01) ==
LOC: LAB 10:49
PROVIDERS: ATTEND Internal Medicine Cardiovascular Disease
DX: I10 Essential (primary) hypertension (principal)
CPT/HCPCS: 36415; 80053; 80061; 83721

== ENCOUNTER 2020-07-01 11:31 | Outpatient (CLI) | payer MEDICARE ==
--- NOTE | 2020-07-01 12:07 | SLEEP CARE CONSULTATION ---
Information from patient questionnaire entered by Akanksha Anna. I have reviewed and concur with the information entered by Akanksha Anna. This document represents the service I personally performed and the decisions made by , Nguyen Lucas ARNP. History of Present Illness Service Date and Time: 07/01/2020 1131 Previous diagnosis: Moderate, Obstructive Sleep Apnea-Hypopnea Syndrome AHI: 21.3 (in 2015) Reason for follow up: annual (last seen 06/2019) Equipment type: CPAP Equipment obtained from: [employer] (getting supplies as needed) Mask style: Nasal pillows Backup mask available: Yes (old mask yes but not headgear) Last cushion change: 3 weeks Prior sleep studies: Yes Year and Where: 2015 - [facility] Type of Sleep Study: Polysomnography HPI additional information: ALLIE DECKER was diagnosed to have moderate, AHI 21.3, obstructive sleep apnea- hypopnea syndrome and returned today for CPAP therapy annual follow-up. CPAP Compliance Data - Data Reviewed with Patient Average duration of nightly device use: 8 hours 41 minutes Compliance rate %: 98.3 Current pressure setting (cmH2O): 9-12 Average residual AHI: 3.2 Central apnea: 0.9 Obstructive apnea: 1.4 Hypopnea: 0.9 Average large leak: 6 mins 40 secs Subjective Missed days of use due to: reports: other (power outage) Patient concerns: reports: condensation in mask/hose (heating element is not working), nasal congestion (problem predates CPAP), dry mouth, nose, throat (dry mouth, wears a police guard for teeth; she is using dry throat lozenges rec by dental hygenist (has xylitol)). denies: aerophagia, mask discomfort, air blowing in eyes, mask leak noise, epistaxis, other Observed to snore while using device: No Current pressure setting perceived as: comfortable On therapy, patient: reports: sleeping better, awakening more refreshed, being more awake and alert during the day, more rested overall. denies: drowsiness while driving Initial [place] Sleepiness Scale score: 2 (in 2016) Current [place] Sleepiness Scale score: 1 Allergies and Home Medications Drug allergies reviewed: Yes (seel list in chart) Home medication list reviewed: Yes Allergy and home medication list: Crestor 10 mg, new stopped pravastatin Review of Systems Review of systems same as previous: Yes (no changes) Physical Exam Heart Rate: 56 O2 Saturation: 99 Height: 5 ft 2 in Weight: 175 lb Weight change since last visit: 4 pounds gain Body Mass Index: 32.0 BMI Classification: Obese Impression and Plan 1. Obstructive Sleep Apnea-Hypopnea Syndrome, moderate, with good treatment compliance and good apnea control. On CPAP therapy, the patient has better sleep quality and is more rested overall. Allie states her heating element for the humidifier is not working. The air is cool and she is getting some condensation in the hose. She is also having some mouth dryness that she states is chronic. She is using an oral lozenge that contains xylitol which her dental hygenist said was good to use before putting on the mask at night and again if dry in the middle of the night. Oral dryness can be reduced by adjusting humidity setting higher or heated hose lower or by adjusting both settings. She was also instructed to increase the heated hose to reduce the condensation. I will write to have her machine service to try to fix the heating element but patient's machine is out of warranty and was advised that she would pay for any repairs on her machine. She voiced understanding. She is eligible in 2021 for her next machine update. Patient's apnea severity and rationale for treatment to reduce apnea, improve sleep quality and reduce cardiovascular and cerebrovascular events was reviewed. I also reviewed the benefit of consistent device use of CPAP for hypertension. * Continue auto CPAP pressure at 9-12 cmH2O * Have machine serviced for heating element not working on her machine * Notify me if snoring with mask or feeling that the pressure is too much or too little * Attempt to lose weight * Call this office if any problems using CPAP * Return for follow up in 1 year, or sooner if concerns arise Counseling Topics: Spare mask, Weight loss health impact Visit Type: In Office Time Spent with Patient (minutes): 27 Provider Statement: I spent 100% of the Face to Face Visit with the patient with greater than 50% spent counseling the patient and coordination of care.
== END 2020-07-01 11:32 | disposition home or self-care (01) ==
LOC: SC 11:31
PROVIDERS: ATTEND Nurse Practitioner Family
DX: G47.33 Obstructive sleep apnea (adult) (pediatric) (principal); E66.9 Obesity, unspecified; Z68.32 Body mass index [BMI] 32.0-32.9, adult
CPT/HCPCS: 99213; G0463; 99212

== ENCOUNTER 2020-09-17 10:28 | Outpatient (CLI) | payer MEDICARE ==
[2020-09-17 15:00] LABS: BASOPHILS # (AUTO) 0.1 10^3/uL (0.0-0.1); BASOPHILS % (AUTO) 1.1 %; EOSINOPHILS # (AUTO) 0.2 10^3/uL (0.0-0.7); EOSINOPHILS % (AUTO) 3.6 %; HCT - HEMATOCRIT 36.6 % (37.0-47.0); HGB - HEMOGLOBIN 12.1 g/dL (12.0-16.0); LYMPHOCYTES # (AUTO) 1.5 10^3/uL (1.5-3.5); LYMPHOCYTES % (AUTO) 34.6 %; MEAN CORPUSCULAR HEMOGLOBIN 32.1 pg (27.0-31.0); MEAN CORPUSCULAR HGB CONC 33.1 g/dL (32.0-36.0); MEAN CORPUSCULAR VOLUME 97.1 fL (81.0-99.0); MEAN PLATELET VOLUME 10.1 fL (7.9-10.8); MONOCYTES # (AUTO) 0.3 10^3/uL (0.0-1.0); MONOCYTES % (AUTO) 7.7 %; NEUTROPHILS # (AUTO) 2.3 10^3/uL (1.5-6.6); NEUTROPHILS % (AUTO) 52.8 %; PLT - PLATELET COUNT 217 10^3/uL (130-450); RED BLOOD COUNT 3.77 10^6/uL (4.20-5.40); RED CELL DISTRIBUTION WIDTH 12.8 % (12.0-15.0); WHITE BLOOD COUNT 4.4 x10^3/uL (4.8-10.8)
[2020-09-17 15:13] LABS: ALBUMIN 4.3 g/dL (3.2-5.5); ALBUMIN/GLOBULIN RATIO 1.3 (1.0-2.2); ALKALINE PHOSPHATASE 49 IU/L (42-121); ALT ALANINE AMINOTRANSFERASE 17 IU/L (10-60); AST ASPARTATE AMINOTRANSFERASE 21 IU/L (10-42); BILIRUBIN,TOTAL 0.8 mg/dL (0.2-1.0); BUN - BLOOD UREA NITROGEN 16 mg/dL (6-20); CALCIUM 9.7 mg/dL (8.5-10.3); CARBON DIOXIDE - CO2 29 mmol/L (21-32); CHLORIDE 98 mmol/L (101-111); CHOL/HDL RATIO 2.7 (<4.4); CHOLESTEROL 186 mg/dL; CREATININE 0.7 mg/dL (0.4-1.0); GFR - MDRD 81 (>89); GLUCOSE 107 mg/dL (70-100); HDL CHOLESTEROL 69 mg/dL; LDL CHOLESTEROL,CALCULATED 89 mg/dL; LDL/HDL RATIO 1.3 (<4.4); POTASSIUM 3.8 mmol/L (3.5-5.0); SODIUM 136 mmol/L (135-145); TOTAL PROTEIN 7.7 g/dL (6.7-8.2); TRIGLYCERIDES 139 mg/dL; VLDL CHOLESTEROL 28 mg/dL
[2020-09-17 20:51] LABS: ESTIMATED AVERAGE GLUCOSE 108 mg/dL (70-100); HEMOGLOBIN A1c% 5.4 % (4.27-6.07)
== END 2020-09-17 23:59 ==
LOC: LAB.S 10:28
PROVIDERS: ATTEND Family Medicine
DX: E78.5 Hyperlipidemia, unspecified (principal); R73.01 Impaired fasting glucose; I10 Essential (primary) hypertension
CPT/HCPCS: 36415; 80053; 80061; 83036; 83721; 85025

== ENCOUNTER 2020-09-27 10:45 | Outpatient (CLI) | payer MEDICARE ==
--- NOTE | 2020-09-27 15:15 | DEXA Report ---
PROCEDURE: Dexa Spine and/or Hip INDICATIONS: DISORDER OF BONE DENSITY/STRUCTURE TECHNIQUE: Dual energy x-ray absorptiometry (DXA) was performed on a [employer] System. Regions measur ed are the AP Spine, femoral neck, and if needed forearm. COMPARISON: DEXA 08/03/2016 FINDINGS: Lumbar Spine: Bone Mineral Density 1.515 g/cm/cm,T score 2.6, normal compared to 1.9 on prior exam Left Hip: Bone Mineral Density 0.978 g/cm/cm,T score -0.2, compared to -0.5, normal Left Femoral Neck: Bone Mineral Density 0.827 g/cm/cm, T score -1.5, compared to -1.2, mild osteopenia (T score greater or equal to -1.0: NORMAL) (T score from -1.1 to -2.4: OSTEOPENIA) (T score less than or equal to -2.5 to: OSTEOPOROSIS) Impression: Mild osteopenia in the left femoral neck, progressive. Patients with diagnosis of osteoporosis or osteopenia should have regular bone mineral density assess ment. For those eligible for Medicare, routine testing is allowed once every 2 years. Testing frequ ency can be increased for patients who have rapidly progressing disease or for those who are receivin g medical therapy to restore bone mass. Reviewed by: Nicole Castillo MD on 09/27/2020 3:13 PM PDT Approved by: Nicole Castlilo MD on 09/27/2020 3:13 PM PDT Station ID: [id number]
== END 2020-09-27 10:46 | disposition home or self-care (01) ==
LOC: DI 10:45
PROVIDERS: ATTEND Family Medicine
DX: M85.88 Other specified disorders of bone density and structure, other site (principal)

== ENCOUNTER 2021-02-02 13:38 | Outpatient (CLI) | payer MEDICARE ==
[2021-02-02 20:06] LABS: CALCIUM 9.4 mg/dL (8.5-10.3); CREATININE 0.7 mg/dL (0.4-1.0); POTASSIUM 3.7 mmol/L (3.5-5.0)
[2021-02-05 15:32] LABS: ALBUMIN 3.9 g/dL (3.8-4.8); ALPHA 1 GLOBULIN 0.3 g/dL (0.2-0.3); ALPHA 2 GLOBULIN 0.7 g/dL (0.5-0.9); BETA 1 GLOBULIN 0.5 g/dL (0.4-0.6); BETA 2 GLOBULIN 0.4 g/dL (0.2-0.5); GAMMA GLOBULIN 1.2 g/dL (0.8-1.7)
== END 2021-02-02 13:39 | disposition home or self-care (01) ==
LOC: LAB.S 13:38
PROVIDERS: ATTEND Family Medicine
DX: I11.9 Hypertensive heart disease without heart failure (principal); M54.9 Dorsalgia, unspecified
CPT/HCPCS: 36415; 80048; 83880; 84155; 84165

== ENCOUNTER 2021-02-03 16:14 | Outpatient (CLI) | payer MEDICARE ==
--- NOTE | 2021-02-03 17:01 | SLEEP CARE CONSULTATION ---
Information from patient questionnaire entered by Arnoldo Banuelos. I have reviewed and concur with the information entered by Arnoldo Banuelos. This document represents the service I personally performed and the decisions made by me, Nguyen Lucas ARNP. History of Present Illness Service Date and Time: 02/03/2021 1614 Previous diagnosis: Moderate, Obstructive Sleep Apnea-Hypopnea Syndrome AHI: 21.3 (in 2015) Equipment type: CPAP Equipment obtained from: [employer] (getting supplies as needed) Mask style: Nasal pillows Backup mask available: Yes (old mask) Prior sleep studies: Yes Year and Where: 2016 - [facility] Type of Sleep Study: Polysomnography HPI additional information: JENNIFER BANUELOS was diagnosed to have moderate, AHI 21.3, obstructive sleep apnea- hypopnea syndrome and returned today for CPAP therapy 8 month follow-up for CPAP recall. CPAP Compliance Data Compliance data discussion: Patient didn't think she need to bring in her memory chip. She will bring in so we can obtain her current compliance download. Subjective Missed days of use due to: reports: other (Power outages) Patient concerns: reports: dry mouth, nose, throat, other (CPAP recall). denies: aerophagia, mask discomfort, air blowing in eyes, mask leak noise, condensation in mask/hose, nasal congestion, epistaxis Observed to snore while using device: No Current pressure setting perceived as: comfortable On therapy, patient: reports: sleeping better, awakening more refreshed, being more awake and alert during the day, more rested overall. denies: drowsiness while driving Initial [place] Sleepiness Scale score: 2 (in 2016) Current [place] Sleepiness Scale score: 1 Allergies and Home Medications Home medication list reviewed: Yes (no changes) Review of Systems Review of systems same as previous: Yes (no changes) Physical Exam Heart Rate: 58 O2 Saturation: 99 Height: 5 ft 2 in Weight: 173 lb Body Mass Index: 31.6 BMI Classification: Obese Impression and Plan 1. Obstructive Sleep Apnea-Hypopnea Syndrome, moderate, with unknown treatment compliance and unknown apnea control. On CPAP therapy, the patient has better sleep quality and is more rested overall. Patient will bring in her memory chip so we can get the download. Patient has come in to try to get a replacement device. She was last upgraded in 2016. She has decided the risks of not using her device is worse than not using it and would like to try to replace her device as soon as possible. Patient has already registered their device for the recall. Patient denies any black particles seen in machine or hoses, any unusual odors coming from device. Patient has not experienced any physical symptoms such as upper airway irritation, headache, skin or eye irritation, asthma, nausea/vomiting, difficulty breathing or chest pain. Patient informed that they may use an inline CPAP filter that they can obtain online to reduce chance of any particles being inhaled or ingested. We discussed thoroughly the health risks of not using the CPAP versus continuing use with the filter in place. If patient is not able to sleep due to waking up choking, gasping for air or other respiratory distress that they may decide to continue using it until it is either replaced or repaired. Patient voiced understanding and agreement with plan. Patient's apnea severity and rationale for treatment to reduce apnea, improve sleep quality and reduce cardiovascular and cerebrovascular events was reviewed. I also reviewed the benefit of consistent device use of CPAP for hypertension. * Continue auto CPAP pressure at 9-12 cmH2O * Patient to bring in memory chip for download * Notify me if snoring with mask or feeling that the pressure is too much or too little * Attempt to lose weight * Call this office if any problems using CPAP * Return for follow up one month after obtaining new device, or sooner if concerns arise Counseling Topics: Spare mask, Weight loss health impact Visit Type: In Office Time Spent with Patient (minutes): 26 Provider Statement: I spent 100% of the Face to Face Visit with the patient with greater than 50% spent counseling the patient and coordination of care.
== END 2021-02-03 16:15 | disposition home or self-care (01) ==
LOC: SC 16:14
PROVIDERS: ATTEND Nurse Practitioner Family
DX: G47.33 Obstructive sleep apnea (adult) (pediatric) (principal); E66.9 Obesity, unspecified; Z68.31 Body mass index [BMI] 31.0-31.9, adult
CPT/HCPCS: 99213; G0463; 99212

== ENCOUNTER 2021-02-24 10:30 | Outpatient (CLI) | payer MEDICARE ==
--- NOTE | 2021-03-07 09:55 | Mammography Report ---
UNILATERAL LEFT DIGITAL SCREENING MAMMOGRAM 3D/2D: 02/24/2021 CLINICAL: Routine screening. Personal history of right breast cancer. Comparison is made to exams dated: 02/29/2020 mammogram, 08/02/2017 mammogram, and 08/19/2018 mammogram - [facility]. The tissue of left breast is heterogeneously dense. This may lower the sensitivity of mammography. There are benign calcifications in the left breast. No significant masses, calcifications, or other findings are seen in the breast. There has been no significant interval change. IMPRESSION: BENIGN There is no mammographic evidence of malignancy. A 1 year screening mammogram is recommended. This exam was interpreted at Station ID: [id number]. NOTE: For mammograms, a report in lay terms will be sent to the patient. Approximately 15% of breast malignancies will not be visualized mammographically. In the management of a palpable breast mass, a negative mammogram must not discourage biopsy of a clinically suspicious lesion. Electronically Signed By: Sourav daly/marjorie:03/07/2021 09:01:52 ACR BI-RADS Category 2: Benign Finding(s) 3342F PARENCHYMAL PATTERN: (D) - The breast(s) demonstrate(s) heterogeneously dense fibroglandular paralysony ma. BI-RADS CATEGORY: (2) - 2 RECOMMENDATION: (ANNUAL) - Recommend routine annual screening mammography. [id number] 1 year screening LATERALITY: (B)
== END 2021-02-24 10:31 | disposition home or self-care (01) ==
LOC: DI.S 10:30
PROVIDERS: ATTEND Internal Medicine Hematology & Oncology
DX: Z12.31 Encounter for screening mammogram for malignant neoplasm of breast (principal); Z85.3 Personal history of malignant neoplasm of breast

== ENCOUNTER 2021-03-11 11:17 | Outpatient (CLI) | payer MEDICARE ==
[2021-03-11 14:46] LABS: CALCIUM 9.7 mg/dL (8.5-10.3); CREATININE 0.8 mg/dL (0.4-1.0); MAGNESIUM 2.3 mg/dL (1.7-2.8); POTASSIUM 4.2 mmol/L (3.5-5.0)
== END 2021-03-11 11:18 | disposition home or self-care (01) ==
LOC: LAB.S 11:17
PROVIDERS: ATTEND Internal Medicine Cardiovascular Disease
DX: I11.0 Hypertensive heart disease with heart failure (principal); I50.32 Chronic diastolic (congestive) heart failure
CPT/HCPCS: 36415; 80048; 83735

== ENCOUNTER 2021-04-12 11:14 | Outpatient (CLI) | payer MEDICARE ==
[2021-04-12 14:38] LABS: CALCIUM 9.6 mg/dL (8.5-10.3); CREATININE 0.8 mg/dL (0.4-1.0); POTASSIUM 3.8 mmol/L (3.5-5.0)
== END 2021-04-12 11:15 | disposition home or self-care (01) ==
LOC: LAB.S 11:14
PROVIDERS: ATTEND Internal Medicine Cardiovascular Disease
DX: I10 Essential (primary) hypertension (principal)
CPT/HCPCS: 36415; 80048

== ENCOUNTER 2021-05-25 14:25 | Outpatient (CLI) | payer MEDICARE ==
[2021-05-25 14:54] VITALS: BP 157/88
--- NOTE | 2021-05-25 14:54 | SLEEP CARE CONSULTATION ---
Information from patient questionnaire entered by Michelle Cleveland MA. I have reviewed and concur with the information entered by Michelle Cleveland MA. This document represents the service I personally performed and the decisions made by , Nguyen Lucas ARNP. History of Present Illness Service Date and Time: 05/25/2021 1425 Previous diagnosis: Moderate, Obstructive Sleep Apnea-Hypopnea Syndrome AHI: 21.3 (in 2016) Reason for follow up: first compliance, first compliance after device update (02/28/21, APRIA, REPLACEMENT) Equipment type: CPAP Equipment obtained from: [employer] (getting supplies as needed) Mask style: Nasal pillows (Randolph XF xsmall) Backup mask available: No (will need to keep old mask when replaced) Last cushion change: 2 weeks ago Prior sleep studies: Yes Year and Where: 2015 - [facility] Type of Sleep Study: Polysomnography HPI additional information: JENNIFER DECKER was diagnosed to have moderate, AHI 21.3, obstructive sleep apnea- hypopnea syndrome and returned today for CPAP therapy first compliance after device update follow-up. Sleep Study - Results Type of Sleep Study: Polysomnography Prior sleep studies: Yes Year and Where: 2015 - [facility] CPAP Compliance Data - Data Reviewed with Patient Average duration of nightly device use: 9 HOURS 12 MINUTES Compliance rate %: 97 Current pressure setting (cmH2O): 9-12 Average residual AHI: 1.7 Central apnea: 1.0 Obstructive apnea: .6 Subjective Missed days of use due to: reports: other (power outages) Patient concerns: reports: dry mouth, nose, throat, other (cold air make face cold). denies: aerophagia, mask discomfort Observed to snore while using device: No Current pressure setting perceived as: comfortable On therapy, patient: reports: sleeping better, awakening more refreshed, being more awake and alert during the day, more rested overall. denies: drowsiness while driving Initial [place] Sleepiness Scale score: 2 (in 2016) Allergies and Home Medications Home medication list reviewed: Yes Allergy and home medication list: Avastin injections in left eye for macular edema Review of Systems Review of systems same as previous: Yes (no changes) Physical Exam Vital signs obtained and entered by: Adelaide CLEVELAND CMA A[place]IN[place]O Blood Pressure: 157/88 (left) Cuff size: wrist Heart Rate: 88 O2 Saturation: 96 (with mask) Height: 5 ft 2 in Weight: 174 lb (with winter cothes) Body Mass Index: 31.8 BMI Classification: Obese Impression and Plan 1. Obstructive Sleep Apnea-Hypopnea Syndrome, moderate, with good treatment compliance and good apnea control. On CPAP therapy, the patient has better sleep quality and is more rested overall. Patient has chronic issue with dry mouth. She uses some Act lozenges with glycerin and xylitol with good results as recommended by her dental hygienist. She tried to adjust her humidity but the [employer] did not send her a heated hose with the machine and she was unable to tolerate the condensation at the higher humidity. She was instructed to call [employer] and request they send her a heated hose for her Resmed Airsense machine. She voiced understanding and agreement. Patient's apnea severity and rationale for treatment to reduce apnea, improve sleep quality and reduce cardiovascular and cerebrovascular events was reviewed. I also reviewed the benefit of consistent device use of CPAP for hypertension. Patient was encouraged to try to lose weight for her overall health and to reduce apneas. * Continue auto CPAP pressure at 9-12 cmH2O * Notify me if snoring with mask or feeling that the pressure is too much or too little * Attempt to lose weight * Call this office if any problems using CPAP * Return for follow up in 1 year, or sooner if concerns arise Counseling Topics: Spare mask, Weight loss health impact Visit Type: In Office Time Spent with Patient (minutes): 20 Provider Statement: I spent 100% of the Face to Face Visit with the patient with greater than 50% spent counseling the patient and coordination of care.
== END 2021-05-25 14:26 | disposition home or self-care (01) ==
LOC: SC 14:25
PROVIDERS: ATTEND Nurse Practitioner Family
DX: G47.33 Obstructive sleep apnea (adult) (pediatric) (principal); E66.9 Obesity, unspecified; Z68.31 Body mass index [BMI] 31.0-31.9, adult
CPT/HCPCS: 99213; G0463; 99212

== ENCOUNTER 2022-03-01 08:57 | Outpatient (CLI) | payer MEDICARE ==
--- NOTE | 2022-03-02 12:13 | Mammography Report ---
UNILATERAL LEFT DIGITAL SCREENING MAMMOGRAM 3D/2D: 03/01/2022 CLINICAL: Routine screening. Routine screening. Personal history of right breast cancer. Comparison is made to exams dated: 02/24/2021 mammogram, 02/29/2020 mammogram, and 08/19/2018 mammogram - [facility]. The left breast is heterogeneously dense, which may obscure small masses (category c / 51-75% glandu lar tissue). There are benign calcifications in the left breast. No significant masses, calcifications, or other findings are seen in the breast. There has been no significant interval change. IMPRESSION: BENIGN There is no mammographic evidence of malignancy. A 1 year screening mammogram is recommended. This exam was interpreted at Station ID: [id number]. NOTE: For mammograms, a report in lay terms will be sent to the patient. Approximately 15% of breast malignancies will not be visualized mammographically. In the management of a palpable breast mass, a negative mammogram must not discourage biopsy of a clinically suspicious lesion. Electronically Signed By: Estuardo elizondo/marjorie:03/01/2022 19:00:26 ACR BI-RADS Category 2: Benign Finding(s) 3342F PARENCHYMAL PATTERN: (D) - The breast(s) demonstrate(s) heterogeneously dense fibroglandular michelle zheng. BI-RADS CATEGORY: (2) - 2 RECOMMENDATION: (ANNUAL) - Recommend routine annual screening mammography. [id number] 1 year screening LATERALITY: (B)
== END 2022-03-01 08:58 | disposition home or self-care (01) ==
LOC: DI.S 08:57
DX: Z12.31 Encounter for screening mammogram for malignant neoplasm of breast (principal); Z85.3 Personal history of malignant neoplasm of breast

== ENCOUNTER 2022-03-01 08:59 | Outpatient (CLI) | payer MEDICARE ==
[2022-03-01 15:11] LABS: BUN - BLOOD UREA NITROGEN 15 mg/dL (6-20); CALCIUM 9.7 mg/dL (8.5-10.3); CARBON DIOXIDE - CO2 30 mmol/L (21-32); CHLORIDE 99 mmol/L (101-111); CHOL/HDL RATIO 2.8 (<4.4); CHOLESTEROL 202 mg/dL; CREATININE 0.8 mg/dL (0.4-1.0); GFR - MDRD 69 (>89); GLUCOSE 109 mg/dL (70-100); HDL CHOLESTEROL 72 mg/dL; LDL CHOLESTEROL,CALCULATED 118 mg/dL; LDL/HDL RATIO 1.6 (<4.4); POTASSIUM 4.1 mmol/L (3.5-5.0); SODIUM 137 mmol/L (135-145); TRIGLYCERIDES 59 mg/dL; VLDL CHOLESTEROL 12 mg/dL
== END 2022-03-01 09:00 | disposition home or self-care (01) ==
LOC: LAB.S 08:59
PROVIDERS: ATTEND Nurse Practitioner Family
DX: I11.0 Hypertensive heart disease with heart failure (principal); I50.32 Chronic diastolic (congestive) heart failure; E78.5 Hyperlipidemia, unspecified
CPT/HCPCS: 36415; 80048; 80061; 83721

== ENCOUNTER 2022-03-10 10:46 | Outpatient (CLI) | payer MEDICARE ==
[2022-03-10 11:11] LABS: ALBUMIN 4.1 g/dL (3.2-5.5); ALBUMIN/GLOBULIN RATIO 1.2 (1.0-2.2); BILIRUBIN,TOTAL 0.9 mg/dL (0.2-1.0); CALCIUM 9.8 mg/dL (8.5-10.3); CREATININE 0.8 mg/dL (0.4-1.0); POTASSIUM 4.3 mmol/L (3.5-5.0); TOTAL PROTEIN 7.4 g/dL (6.7-8.2)
[2022-03-10 11:21] LABS: ESTIMATED AVERAGE GLUCOSE 111 mg/dL (70-100); HEMOGLOBIN A1c% 5.5 % (4.27-6.07)
== END 2022-03-10 10:47 | disposition home or self-care (01) ==
LOC: LAB 10:46
PROVIDERS: ATTEND Nurse Practitioner Family
DX: R73.01 Impaired fasting glucose (principal)
CPT/HCPCS: 36415; 80053; 83036

== ENCOUNTER 2022-05-19 09:21 | Outpatient (CLI) | payer MEDICARE ==
[2022-05-19 16:15] LABS: CHOL/HDL RATIO 2.7 (<4.4); CHOLESTEROL 174 mg/dL; HDL CHOLESTEROL 65 mg/dL; LDL CHOLESTEROL,CALCULATED 98 mg/dL; LDL/HDL RATIO 1.5 (<4.4); TRIGLYCERIDES 54 mg/dL; VLDL CHOLESTEROL 11 mg/dL
== END 2022-05-19 09:22 | disposition home or self-care (01) ==
LOC: LAB.S 09:21
PROVIDERS: ATTEND Nurse Practitioner Family
DX: E78.5 Hyperlipidemia, unspecified (principal)
CPT/HCPCS: 36415; 80061; 83721

== ENCOUNTER 2022-06-22 11:20 | Outpatient (CLI) | payer MEDICARE ==
[2022-06-22 12:01] VITALS: BP 120/74
--- NOTE | 2022-06-22 12:01 | SLEEP CARE CONSULTATION ---
Information from patient questionnaire entered by Amber Flynn. I have reviewed and concur with the information entered by Amber Flynn. This document represents the service I personally performed and the decisions made by me, Nguyen Lucas ARNP. History of Present Illness Service Date and Time: 06/22/2022 1120 Previous diagnosis: Moderate, Obstructive Sleep Apnea-Hypopnea Syndrome AHI: 21.3 (in 2015) Reason for follow up: annual (LAST SEEN 05/2021) Equipment type: CPAP (Dreamstation 2) Equipment obtained from: [employer] (getting supplies as needed) Mask style: Nasal pillows (Randolph XF xsmall) Backup mask available: No (will keep old mask when replaced) Last cushion change: 2 weeks [facility]: Yes [facility] Type of Sleep Study: Pol[facility] HPI additional information: JENNIFER DECKER was diagnosed to have moderate, AHI 21.3, obstructive sleep apnea- hypopnea syndrome and returned today for CPAP therapy annual follow-up. Sleep Study - Results Type of Sleep Study: Polysomnography Prior sleep studies: Yes [facility] Compliance Data - Data Reviewed with Patient Average duration of nightly device use: 9 hours 16 minutes Compliance rate %: 100 (30/30 days used) Current pressure setting (cmH2O): 9-12 Average residual AHI: 2.0 Central apnea: 0.6 Obstructive apnea: 0.9 Hypopnea: 0.5 Average large leak: 44 secs Subjective Patient concerns: reports: condensation in mask/hose (around pillows; with a runny nose/illness that she had; it is improving), dry mouth, nose, throat (has chroinc dry mouth). denies: aerophagia, mask discomfort, air blowing in eyes, mask leak noise, nasal congestion, epistaxis Observed to snore while using device: No Current pressure setting perceived as: comfortable On therapy, patient: reports: sleeping better, awakening more refreshed, being more awake and alert during the day, more rested overall. denies: drowsiness w hile driving Initial [place] Sleepiness Scale score: 2 (in 2016) Current [place] Sleepiness Scale score: 1 (06/22/22) Allergies and Home Medications Drug allergies reviewed: Yes (as listed in EMR) Home medication list reviewed: Yes (no changes) Review of Systems Review of systems same as previous: Yes (no changes) Physical Exam Vital signs obtained and entered by: AMBER Caal MA Blood Pressure: 120/74 (LEFT ARM) Cuff size: regular Heart Rate: 64 O2 Saturation: 97 Height: 5 ft 2 in Weight: 174 lb 12.8 oz Body Mass Index: 31.9 BMI Classification: Obese Impression and Plan 1. Obstructive Sleep Apnea-Hypopnea Syndrome, moderate, with good treatment compliance and good apnea control. On CPAP therapy, the patient has better sleep quality and is more rested overall. Patient got sick and had a lot of nasal drainage that caused condensation around the nasal pillows. She states it is much better now but has taken a long time to clear up. Patient has significant improvement of their sleep apnea and are satisfied with current CPAP therapy. Patient denies problems with nasal congestion, epistaxis, skin irritation or aerophagia. Patient's apnea severity and rationale for treatment to reduce apnea, improve sleep quality and reduce cardiovascular and cerebrovascular events was reviewed. I also reviewed the benefit of consistent device use of CPAP for hypertension. 2. Obesity, unspecified. Currently patients BMI is 31.9. Obesity increases the risk of apnea, CPAP pressure requirements and overall health risks especially cardiovascular and diabetes. Thus patient is advised to lose weight. The patient's CPAP pressure range should accommodate some weight loss. Symptoms to report for additional pressure adjustment discussed. * Continue auto CPAP pressure at 9-12 cmH2O * Update supplies * Notify me if snoring with mask or feeling that the pressure is too much or too little * Attempt to lose weight * Call this office if any problems using CPAP * Return for follow up in 1 year, or sooner if concerns arise Counseling Topics: Spare mask, Weight loss health impact Prescriptions: Device supplies Visit Type: In Office Time Spent with Patient (minutes): 24 Provider Statement: I spent 100% of the Face to Face Visit with the patient with greater than 50% spent counseling the patient and coordination of care.
== END 2022-06-22 11:21 | disposition home or self-care (01) ==
LOC: SC 11:20
PROVIDERS: ATTEND Nurse Practitioner Family
DX: G47.33 Obstructive sleep apnea (adult) (pediatric) (principal); E66.9 Obesity, unspecified; Z68.31 Body mass index [BMI] 31.0-31.9, adult
CPT/HCPCS: 99213; G0463; 99212

== ENCOUNTER 2022-09-07 11:01 | Outpatient (CLI) | payer MEDICARE ==
[2022-09-07 14:13] LABS: CALCIUM 9.3 mg/dL (8.5-10.3); CREATININE 0.7 mg/dL (0.4-1.0); POTASSIUM 4.4 mmol/L (3.5-5.0)
== END 2022-09-07 11:02 | disposition home or self-care (01) ==
LOC: LAB.S 11:01
PROVIDERS: ATTEND Internal Medicine Cardiovascular Disease
DX: I50.32 Chronic diastolic (congestive) heart failure (principal)
CPT/HCPCS: 36415; 80048

== ENCOUNTER 2022-10-26 11:26 | Outpatient (CLI) | payer MEDICARE ==
[2022-10-26 14:44] LABS: BASOPHILS % (AUTO) 0.7 %; EOSINOPHILS # (AUTO) 0.2 10^3/uL (0.0-0.7); EOSINOPHILS % (AUTO) 2.5 %; HCT - HEMATOCRIT 40.4 % (37.0-47.0); LYMPHOCYTES # (AUTO) 1.4 10^3/uL (1.5-3.5); LYMPHOCYTES % (AUTO) 23.2 %; MEAN CORPUSCULAR HGB CONC 32.2 g/dL (32.0-36.0); MEAN CORPUSCULAR VOLUME 96.4 fL (81.0-99.0); MEAN PLATELET VOLUME 9.8 fL (7.9-10.8); MONOCYTES # (AUTO) 0.5 10^3/uL (0.0-1.0); NEUTROPHILS # (AUTO) 3.9 10^3/uL (1.5-6.6); NEUTROPHILS % (AUTO) 65.3 %; PLT - PLATELET COUNT 240 10^3/uL (130-450); RED BLOOD COUNT 4.19 10^6/uL (4.20-5.40); RED CELL DISTRIBUTION WIDTH 13.2 % (12.0-15.0)
[2022-10-26 15:25] LABS: ALBUMIN 3.8 g/dL (3.2-5.5); ALBUMIN/GLOBULIN RATIO 1.1 (1.0-2.2); ALKALINE PHOSPHATASE 51 IU/L (42-121); ALT ALANINE AMINOTRANSFERASE 18 IU/L (10-60); AST ASPARTATE AMINOTRANSFERASE 22 IU/L (10-42); BUN - BLOOD UREA NITROGEN 21 mg/dL (6-20); CALCIUM 9.4 mg/dL (8.5-10.3); CARBON DIOXIDE - CO2 30 mmol/L (21-32); CHLORIDE 100 mmol/L (101-111); CHOL/HDL RATIO 2.4 (<4.4); CHOLESTEROL 170 mg/dL; CREATININE 0.8 mg/dL (0.4-1.0); GFR - MDRD 69 (>89); GLUCOSE 118 mg/dL (70-100); HDL CHOLESTEROL 71 mg/dL; LDL CHOLESTEROL,CALCULATED 90 mg/dL; LDL/HDL RATIO 1.3 (<4.4); POTASSIUM 4.7 mmol/L (3.5-5.0); SODIUM 136 mmol/L (135-145); TOTAL PROTEIN 7.3 g/dL (6.7-8.2); TRIGLYCERIDES 47 mg/dL; VLDL CHOLESTEROL 9 mg/dL
[2022-10-26 15:33] LABS: THYROID STIMULATING HORMONE 1.57 uIU/mL (0.34-5.60)
[2022-10-26 20:45] LABS: ESTIMATED AVERAGE GLUCOSE 117 mg/dL (70-100); HEMOGLOBIN A1c% 5.7 % (4.27-6.07)
== END 2022-10-26 11:27 | disposition home or self-care (01) ==
LOC: LAB.S 11:26
PROVIDERS: ATTEND Nurse Practitioner Family
DX: I10 Essential (primary) hypertension (principal); E66.9 Obesity, unspecified; R73.01 Impaired fasting glucose; E78.5 Hyperlipidemia, unspecified
CPT/HCPCS: 36415; 80053; 80061; 83036; 83721; 84443; 85025

== ENCOUNTER 2022-11-03 10:38 | Outpatient (CLI) | payer MEDICARE ==
--- NOTE | 2022-11-03 12:34 | DEXA Report ---
PROCEDURE: Dexa Spine and/or Hip INDICATIONS: OSTEOPENIA TECHNIQUE: Dual energy x-ray absorptiometry (DXA) was performed on a YouScan System. Regions measur ed are the AP Spine, femoral neck, and if needed forearm. COMPARISON: DEXA 09/28/2019 FINDINGS: Lumbar Spine: Bone Mineral Density 1.176 g/cm/cm,T score 4.5, compared to 2.6. Left Femoral Neck: Bone Mineral Density 0.795 g/cm/cm, T score -1.7, compared to -1.5. Left Hip: Bone Mineral Density 0.935 g/cm/cm,T score -0.6, compared to -0.2. (T score greater or equal to -1.0: NORMAL) (T score from -1.1 to -2.4: OSTEOPENIA) (T score less than or equal to -2.5 to: OSTEOPOROSIS) Impression: By WHO criteria, this patient has slowly progressive osteopenia within the left femoral neck. Patients with diagnosis of osteoporosis or osteopenia should have regular bone mineral density assess ment. For those eligible for Medicare, routine testing is allowed once every 2 years. Testing frequ ency can be increased for patients who have rapidly progressing disease or for those who are receivin g medical therapy to restore bone mass. Reviewed by: Nicole Castillo MD on 11/03/2022 12:32 PM PDT Approved by: Nicole Castillo MD on 11/03/2022 12:32 PM PDT Station ID: [id number]
== END 2022-11-03 10:39 | disposition home or self-care (01) ==
LOC: DI 10:38
PROVIDERS: ATTEND Nurse Practitioner Family
DX: M85.80 Other specified disorders of bone density and structure, unspecified site (principal)

== ENCOUNTER 2023-03-21 09:53 | Outpatient (CLI) | payer MEDICARE ==
--- NOTE | 2023-03-22 10:01 | Mammography Report ---
UNILATERAL LEFT DIGITAL SCREENING MAMMOGRAM 3D/2D: 03/21/2023 CLINICAL: Routine screening. Personal history of right breast cancer. Comparison is made to exams dated: 03/01/2022 mammogram, 02/24/2021 mammogram, 02/29/2020 mammogram, an d 08/19/2018 mammogram - [facility]. The left breast is heterogeneously dense, which may obscure small masses (category c / 51-75% glandul ar tissue). There are benign calcifications in the left breast. No significant masses, calcifications, or other findings are seen in the breast. There has been no significant interval change. IMPRESSION: BENIGN There is no mammographic evidence of malignancy. A 1 year screening mammogram is recommended. This exam was interpreted at Station ID: [id number]. NOTE: For mammograms, a report in lay terms will be sent to the patient. Approximately 15% of breast malignancies will not be visualized mammographically. In the management of a palpable breast mass, a negative mammogram must not discourage biopsy of a clinically suspicious lesion. Electronically Signed By: Estuardo Moscoso M.D. aty/:03/22/2023 06:57:03 letter sent: No_Letter ACR BI-RADS Category 2: Benign Finding(s) 3342F PARENCHYMAL PATTERN: (D) - The breast(s) demonstrate(s) heterogeneously dense fibroglandular paralysony norm. BI-RADS CATEGORY: (2) - 2 Mammogram [id number] 1 year screening LATERALITY: (B)
== END 2023-03-21 09:54 | disposition home or self-care (01) ==
LOC: DI.S 09:53
DX: Z12.31 Encounter for screening mammogram for malignant neoplasm of breast (principal); Z85.3 Personal history of malignant neoplasm of breast; R92.332 Mammographic heterogeneous density, left breast

== ENCOUNTER 2023-06-29 11:23 | Outpatient (CLI) | payer MEDICARE ==
--- NOTE | 2023-06-29 12:00 | Sleep Patient Instructions ---
Sleep Center Visit Summary - Patient Visit Information Reason for Visit: Annual visit - Patient Instructions Additional Instructions: You will continue with CPAP therapy with pressure set at 9-12 cmH2O. A supply prescription will be updated with your DME. We encourage you to continue to try to lose weight. Please follow up with the sleep care office in 1 year. - Clinic Information Contact: [facility] [address] [place] [address] [email or web address] T: [phone]
--- NOTE | 2023-06-29 12:03 | SLEEP CARE CONSULTATION ---
Information from patient questionnaire entered by Yahaira Flynn. I have reviewed and concur with the information entered by Yahaira Flynn. This document represents the service I personally performed and the decisions made by me, Nguyen Lucas ARNP. History of Present Illness Service Date and Time: 06/29/2023 1140 Previous diagnosis: Moderate, Obstructive Sleep Apnea-Hypopnea Syndrome AHI: 21.3 (in 2016) Reason for follow up: annual (LAST SEEN 06/2022) Equipment type: CPAP (Dreamstation 2; NEED MACHINE) Equipment obtained from: [employer] (getting supplies as needed) Mask style: Nasal pillows Mask brand: Resmed (AirFit P30i, small cushion) Backup mask available: Yes Last cushion change: 2-3 weeks ago Prior sleep [facility]: Yes [facility] Type of Sleep Study: Polysomnography HPI additional information: JENNIFER DECKER was diagnosed to have moderate, AHI 21.3, obstructive sleep apnea- hypopnea syndrome and returned today for CPAP therapy annual follow-up. Sleep Study - Results Type of Sleep Study: Polysomnography Prior sleep studies: Yes [facility] and [facility] Compliance Data - Data Reviewed with Patient Average duration of nightly device use: 9 hours 12 minutes Compliance rate %: 97.8 (181/185 days used) Current pressure setting (cmH2O): 9-12 Average residual AHI: 1.8 Average large leak: 25 secs Subjective Missed days of use due to: reports: other (power outage) Patient concerns: reports: dry mouth, nose, throat (occasional). denies: aerophagia, mask discomfort, air blowing in eyes, mask leak noise, condensation in mask/hose, nasal congestion, epistaxis Observed to snore while using device: No Current pressure setting perceived as: comfortable On therapy, patient: reports: sleeping better, awakening more refreshed, being more awake and alert during the day, more rested overall. denies: drowsiness while driving Initial [place] Sleepiness Scale score: 2 (in 2016) Current [place] Sleepiness Scale score: 2 Allergies and Home Medications Known drug allergies: Yes (as listed) Drug allergies reviewed: Yes Home medication list reviewed: Yes (see scanned list) Allergy and home medication list: Allergies triamcinolone Allergy (Verified 01/17/24 14:17) Rash estrogens, conjugated [From Premarin] Adverse Reaction (Verified 06/27/23 14:17) Itching burning metal Allergy (Uncoded 06/27/23 14:17) mouth sores Physical Exam Vital signs obtained and entered by: AMNA ALCANTAR Blood Pressure: 115/75 Cuff size: wrist (left) Heart Rate: 57 O2 Saturation: 100 Height: 5 ft 2 in Weight: 181 lb 12.8 oz Weight change since last visit: 7 lbs gain Body Mass Index: 33.2 BMI Classification: Obese Impression and Plan 1. Obstructive Sleep Apnea-Hypopnea Syndrome, moderate, with good treatment compliance and good apnea control. On CPAP therapy, the patient has better sleep quality and is more rested overall. Patient has significant improvement of their sleep apnea and is satisfied with current CPAP therapy. Patient denies problems with oral dryness, nasal congestion, epistaxis, skin irritation or aerophagia. Patient's apnea severity and rationale for treatment to reduce apnea, improve sleep quality and reduce cardiovascular and cerebrovascular events was reviewed. I also reviewed the benefit of consistent device use of CPAP for hypertension. 2. Obesity, unspecified. Currently patients BMI is 33.2. Obesity increases the risk of apnea, CPAP pressure requirements and overall health risks especially cardiovascular and diabetes. Thus patient is advised to lose weight. * Continue auto CPAP pressure at 9-12 cmH2O * Update supply prescription * Notify me if snoring with mask or feeling that the pressure is too much or too little * Attempt to lose weight * Call this office if any problems using CPAP * Return for follow up in 12 months, or sooner if concerns arise Counseling Topics: Weight loss health impact Prescriptions: Device supplies Follow up with Sleep Care in: 1 year Visit Type: In Office Time Spent with Patient (minutes): 23 Provider Statement: I spent 100% of the Face to Face Visit with the patient with greater than 50% spent counseling the patient and coordination of care.
[2023-06-29 12:04] VITALS: BP 115/75; O2SAT 100
== END 2023-06-29 11:24 | disposition home or self-care (01) ==
LOC: SC 11:23
PROVIDERS: ATTEND Nurse Practitioner Family
DX: G47.33 Obstructive sleep apnea (adult) (pediatric) (principal); E66.9 Obesity, unspecified; Z68.33 Body mass index [BMI] 33.0-33.9, adult
CPT/HCPCS: 99213; G0463; 99212

== ENCOUNTER 2023-10-17 11:11 | Outpatient (CLI) | payer MEDICARE ==
[2023-10-17 14:39] LABS: BASOPHILS % (AUTO) 0.7 %; EOSINOPHILS # (AUTO) 0.1 10^3/uL (0.0-0.7); EOSINOPHILS % (AUTO) 2.1 %; HCT - HEMATOCRIT 39.1 % (37.0-47.0); LYMPHOCYTES # (AUTO) 1.3 10^3/uL (1.5-3.5); LYMPHOCYTES % (AUTO) 21.4 %; MEAN CORPUSCULAR HEMOGLOBIN 32.3 pg (27.0-31.0); MEAN CORPUSCULAR HGB CONC 33.2 g/dL (32.0-36.0); MEAN PLATELET VOLUME 9.5 fL (7.9-10.8); MONOCYTES # (AUTO) 0.5 10^3/uL (0.0-1.0); MONOCYTES % (AUTO) 8.4 %; NEUTROPHILS # (AUTO) 4.1 10^3/uL (1.5-6.6); NEUTROPHILS % (AUTO) 67.1 %; PLT - PLATELET COUNT 245 10^3/uL (130-450); RED BLOOD COUNT 4.03 10^6/uL (4.20-5.40); RED CELL DISTRIBUTION WIDTH 12.9 % (12.0-15.0); WHITE BLOOD COUNT 6.1 x10^3/uL (4.8-10.8)
[2023-10-17 15:01] LABS: CHOL/HDL RATIO 2.5 (<4.4); CHOLESTEROL 177 mg/dL; HDL CHOLESTEROL 70 mg/dL; LDL CHOLESTEROL,CALCULATED 83 mg/dL; LDL/HDL RATIO 1.2 (<4.4); TRIGLYCERIDES 120 mg/dL (48-352); VLDL CHOLESTEROL 24 mg/dL
[2023-10-17 15:13] LABS: THYROID STIMULATING HORMONE 1.49 uIU/mL (0.34-5.60)
== END 2023-10-17 11:12 | disposition home or self-care (01) ==
LOC: LAB.S 11:11
PROVIDERS: ATTEND Nurse Practitioner Family
DX: Z02.89 Encounter for other administrative examinations (principal); Z79.899 Other long term (current) drug therapy
CPT/HCPCS: 36415; 80061; 83721; 84443; 85025

== ENCOUNTER 2023-10-30 11:41 | Outpatient (CLI) | payer MEDICARE ==
[2023-10-30 16:31] LABS: ALBUMIN 4.1 g/dL (3.2-5.5); ALBUMIN/GLOBULIN RATIO 1.4 (1.0-2.2); CALCIUM 10.2 mg/dL (8.5-10.3); CREATININE 0.8 mg/dL (0.6-1.3); POTASSIUM 4.2 mmol/L (3.5-4.5); TOTAL PROTEIN 7.1 g/dL (6.4-8.9)
== END 2023-10-30 11:42 | disposition home or self-care (01) ==
LOC: LAB.S 11:41
PROVIDERS: ATTEND Nurse Practitioner Family
DX: I10 Essential (primary) hypertension (principal); Z51.81 Encounter for therapeutic drug level monitoring; Z79.899 Other long term (current) drug therapy
CPT/HCPCS: 36415; 80053